=== PATIENT | male | born 1955 | race Caucasian/White ===

== ENCOUNTER 2024-11-01 11:32 | Day surgery (SDC) | payer MEDICARE, OTHER, SELFPAY ==
[2024-10-21 12:41] VITALS: BMI 23.6
[2024-10-21 14:20] VITALS: BMI 23.6
[2024-11-01] VITALS (12 sets, daily range): BP systolic 83–129; BP diastolic 44–79; PULSE 51–66; RESP 12–18; TEMP 36.1–37.2; O2SAT 93–99; BMI 23.6
--- NOTE | 2024-11-01 | DI.RAD.S_ITS ---
PROCEDURE: XR HIP W PEL IF DONE RT 2V INDICATIONS: RIGHT TOTAL HIP TECHNIQUE: AP pelvis and lateral view of the hip acquired. COMPARISON: [facility], [place]ON, XR HIP W PEL IF DONE RT 2V, 11/01/2024, 14:12. FINDINGS: Bones: Patient is status post right hip arthroplasty, with hardware components in expected positions. The hip joint appears congruent. The visualized bony structures appear intact. Soft tissues: Overlying postoperative changes are noted. No suspicious soft tissue densities. IMPRESSION: Expected post-operative appearance of a hip arthroplasty. Approved by: Gustavo Davis M.D. on 11/02/2024 at 17:57
--- NOTE | 2024-11-01 06:00 | DI.RAD.S_ITS ---
PROCEDURE: XR HIP W PEL IF DONE RT 2V INDICATIONS: veronika TECHNIQUE: 2 view(s) of the hip acquired. COMPARISON: [facility], CR, XR HIP W PEL IF DONE RT 2V, 11/01/2024, 16:30. FINDINGS: Bones: Intraoperative right hip arthroplasty changes. The hardware components are in expected positions. The hip joint appears congruent. The visualized bony structures appear intact. Soft tissues: Overlying postoperative changes are noted. No suspicious soft tissue densities. IMPRESSION: Expected intraoperative appearance of a hip arthroplasty. Dictated by: Aysha Priest MD, PhD on 11/02/2024 at 12:02 Approved by: Aysha Priest MD, PhD on 11/02/2024 at 12:03
[2024-11-01] MEDS: ACETAMINOPHEN 325 MG TABLET 975 MG PO (12:13)
[2024-11-01] MEDS: LACTATED RINGERS 1,000 ML 42 ML IV ×2 (12:13→15:06)
[2024-11-01] MEDS: MELOXICAM 7.5 MG TABLET 15 MG PO (12:14)
--- NOTE | 2024-11-01 13:21 | PM.PREOP ---
Pre-operative Note Interval Note History & Physical reviewed/Exam performed by Physician: Yes Changes to H&P: Yes H&P completed within 30 days and has changed as indicated here:: Patient with recent viral URI symptoms. We are going to get a PCR panel preoperatively
[2024-11-01 13:56] LABS: COVID-19 CEPHEID 4-PLEX PCR Negative (Negative); Influenza A - CEPHEID Flu A NEGATIVE (NEGATIVE); Influenza B - CEPHEID Flu B NEGATIVE (NEGATIVE); Respiratory Syncytial Virus Negative (Negative)
[2024-11-01] MEDS: CEFAZOLIN 2 GM/100 ML PREMIX 100 ML IV ×2 (14:35→22:23)
[2024-11-01] MEDS: TRANEXAMIC ACID 1,000 MG VIAL 2000 MG INJ ×2 (14:36→15:57)
--- NOTE | 2024-11-01 14:58 | SUR.OPER ---
Supine on padded [place] table with bilateral legs secured in padded positioning boots and suspended in positioning spars, operative leg in traction per surgeon. Head on one pillow. Bilateral arms secured on padded armboard <90 degrees abduction. Padded perineal post in place per surgeon.
[2024-11-01] MEDS: ROPIVACAINE/EPI/CLONIDINE/KET 50 ML SYRINGE INJ (15:08)
--- NOTE | 2024-11-01 16:19 | P.OP_ITS ---
Operative Date/Time/Diagnoses Date of procedure: 11/01/24 Pre-op diagnosis: Right hip osteoarthritis Post-op diagnosis: same Procedure & Clinicians Procedure: Right total hip arthroplasty Same procedure as scheduled: Yes Surgeon: Gustavo Verde [employer] Contact Printer: Cheryl Adams Anesthesia Type: Spinal, Sedation and Local Operative Notes Estimated Blood Loss (mL): 300 Procedure in detail: Right Uncemented Direct Anterior Depuy Total Hip Arthroplasty: Implants: * [place] Gription size 62 cup? * Actis femoral stem size 8 high offset? * 36 mm +5 ceramic femoral head? Procedure Summary: This 69-year-old male patient is relatively slender and had a small soft tissue envelope around his hip. I was able to access the femur for broaching without accessory releases of the conjoined tendon. During initial trialing he had good stability but appeared to be slightly short so with final implants upsized the head by [address] a definitive +5 head. Bone quality was high. Procedure in Detail: This patient was seen preoperatively and evaluated for hip pain which was refractory to numerous nonoperative treatment modalities. Their hip pain correlated with radiographic changes demonstrating significant degeneration in the hip joint. The risks and benefits of continued nonoperative management versus operative management were discussed at length and all of the patient?s questions were answered. Additional educational materials providing further details beyond our discussion in clinic were provided via a publicly available patient education video which included the incidence of medical complications associated with total hip arthroplasty, reasons for revision following total hip arthroplasty, and patient satisfaction rates following total hip arthroplasty. That video can be accessed at [email or web address] . With this understanding of the risks inherent to the procedure, the patient elected to move forward with operative management. Following preoperative optimization, the patient was scheduled for surgery. The patient was met in the preoperative holding area the day of the procedure and all questions were answered. The patient?s nares were swabbed with betadine in order to decolonize them from MRSA. Informed consent was signed and the right limb was marked with indelible ink.? The patient was brought back to the operating room where anesthesia was induced. The patient was transferred to the [place] table and all bony prominences were padded. The operative site was prepped and draped in the usual sterile fashion. Prior to incision, tranexamic acid and cefazolin were administered. Operative templating images were displayed demonstrating the anticipated implant sizes and correct operative extremity. A timeout procedure was performed verifying the patient?s identity, medical comorbidities, allergies, relevant medications, anesthesia type and the surgical plan. All present were in agreement. The assistance of a physician glass ribbon machine operator assistant was required for positioning, room setup, soft tissue retraction and wound closure. Without this assistance, the procedure would have been significantly more challenging and time consuming.?? A direct anterior approach to the hip was utilized. This was performed with a longitudinal incision through a Heuter interval. The incision was planned 2 cm distal and 2 cm lateral to the ASIS extending towards the lateral patella, in line with the muscle body of the TFL. Following incision, the subcutaneous tissue was dissected while taking care to avoid injury to the lateral femoral cutaneous nerve. The fascia overlying the TFL was identified by dissecting off the overlying fat and identifying perforating vessels to the TFL. The TFL fascia was incised and dissected away from the medial border of the TFL. A cobra retractor was placed over the superior femoral neck between the abductors and the hip capsule and used to reflect the TFL laterally. A [place] self-retainer was then placed in the distal aspect of the wound between the TFL and the rectus femoris. This was tensioned to open up the direct anterior interval and the lateral circumflex vessels were identified and coagulated using electrocautery. The floor of the TFL fascia was incised, exposing the pericapsular fat overlying the hip capsule. A second cobra retractor was placed on the inferior femoral neck. A double-bent soft tissue retractor was placed on the anterior wall of the acetabulum and used to tension the reflected head of rectus femoris, which was then released in order to limit soft tissue tension. A capsulotomy was made in the midline of the anterior hip capsule in line with the femoral neck ending at the vastus tubercle. The double-bent retractor was removed in order to limit the amount of time that a soft tissue retractor remained on the anterior wall and protect the femoral nerve. Tag stitches were placed in the superior and inferior leaflets of the hip capsule. An David soft tissue retractor was introduced over the tag stitches and tensioned in the interval between the rectus femoris and the TFL in order to retract and protect those muscles. The cobra retractors were replaced intracapsularly, with one over the superior neck in the pocket created by the base of the greater trochanter and the other on the femoral head. The capsulotomy was extended laterally to the base of the greater trochanter and medially to the lesser trochanter. This required externally rotating the hip. Once the lesser trochanter had been identified, a neck cut was planned according to measurements from preoperative templating. A ruler was cut at the length measured between the superior aspect of the lesser trochanter and the collar of the prosthesis. This line was extended towards the inferior aspect of the lateral cobra retractor to plan a cut which would leave minimal residual femoral neck laterally. The neck was cut at 60 degrees of external rotation along that line. A second cut was performed to remove a large napkin ring and facilitate head extraction. The napkin ring cut and femoral head were removed.?? A broad anterior wall retractor was placed between the labrum and the anterior capsule so that the anterior capsule would prevent capturing and pinching the femoral nerve anteriorly. An additional retractor was placed on the posterior wall. External rotation and traction were applied through the [place] table so that the cut surface of the femoral neck would not restrict access to the acetabulum. The labrum was excised sharply and the pulvinar was excised with electrocautery to limit bleeding from branches of the obturator artery. Acetabular reamers were selected based on preoperative templating and measurements of the excised femoral head. These were introduced into the acetabulum. Fluoroscopy was utilized to replicate a standing AP pelvis radiograph by centering over the pelvis, rotating until there was appropriate symmetry between the obturator foramen, and introducing caudal tilt to match the position of the pubic symphysis relative to the sacrococcygeal junction according to the patient?s anatomy. Fluoroscopy was utilized to ensure appropriate reaming depth. Once satisfied with the reaming depth corresponding to the preoperative template and the pinch fit between the columns, an appropriate sized acetabular cup was selected which would provide 1 mm of press-fit. This cup was introduced and manipulated until appropriate abduction and anteversion angles were obtained with careful attention to appropriate abduction and anteversion angles as evaluated by the position of the cup relative to the anterior and posterior beasley of the acetabulum and the AP fluoroscopy which recreated the patient?s standing radiograph. The cup was impacted into place. Peripheral osteophytes were removed. The acetabular liner was then placed with care to ensure locking of the locking mechanism.? Attention was then turned to the femur. All retractors were removed, traction was released, a retractor was placed in the interval between the hip capsule and the gluteus minimus, and the hip was externally rotated to 90 degrees. Traction was applied through the [place] table to tension the lateral capsule and this was released using electrocautery. Traction was released and a [place] hook was placed posteriorly around the proximal femur at the level of the vastus ridge. The table height was lowered in order to restrict the tension on the anterior structures during hip hyperextension to limit the risk of femoral nerve palsy. With traction off and the hip at 90 degrees of external rotation, the hip was hyperextended and adducted while manually elevating the femur away from the acetabulum with the [place] hook to ensure it would not be caught behind the greater trochanter. An asymmetric retractor was placed over the calcar and a broad double-pronged retractor was placed over the greater trochanter. The tag stitch capturing the lateral leaflet of the capsule was moved to the medial side, leaving the conjoined and piriformis tendons isolated in the face of the greater trochanter. The hip was externally rotated and elevated. A release of the conjoined tendon was not necessary in order to obtain adequate exposure for broaching. The canal was opened with an opening broach and a rasp was used to remove cancellous bone. A rongeur was used to remove the residual lateral bone at the base of the greater trochanter to avoid placing the stem in varus. The femur was then broached to the appropriate sized stem yielding good rotational fit and fill of the canal as well as appropriate version of the stem trial. Neck and head trials were placed, all retractors were removed and the hip was returned to neutral abduction and extension. I then reduced the hip. Initial trialing was performed with a size 8 broach, a high offset neck and a +1.5 head. I initially manually externally rotated the hip and found no instabi lity. I then locked the hip in 45 degrees of external rotation and dropped it to the floor with traction off which demonstrated no instability. An AP pelvis fluoroscopic image matching the preoperative standing radiograph with both lesser trochanters visible and both hips in 40 degrees of external rotation demonstrated that the operative site was slightly short relative to the nonoperative side. AP and lateral hip fluoroscopic images were obtained to evaluate the broach size which demonstrated good canal fill. The hip was dislocated and I returned to the broaching position. Based on my evaluation during initial trialing I planned to place definitive implants but upsize by 1 on the head side as stability was good with the +1.5 head although it did appear to be short radiographically when using a long metal bar across the trans ischial line to control for fluoroscopic distortion. The definitive stem was placed and the trunnion was cleaned and dried. I placed a ceramic head onto the trunnion and impacted it into place on the Gillis taper.?? All retractors were removed and the hip was reduced. A dilute mixture of betadine and peroxide was used to bathe the soft tissues during final fl uoroscopic assessment. Appropriate component positioning was confirmed on an AP pelvis radiograph with the operative and nonoperative legs in 40 degrees of external rotation, evaluating leg length and offset. Appropriate stem fill was evaluated on AP and lateral hip radiographs. No fractures were identified on these radiographs. There was no hip instability with maximum (115?) external rotation as well as a 45 degree drop test. The hip was copiously irrigated with pulse lavage. The capsule was closed with absorbable interrupted suture. The TFL fascia was closed with barbed suture while carefully protecting the lateral femoral cutaneous nerve from entrapment. A mixture of Ropivacaine, Epinephrine, Clonidine and Toradol was infiltrated throughout the soft tissues. The skin was closed with 2-0 and 3-0 sutures. Surgical glue was applied and a soft dressing was placed.??The sponge, instrument and needle counts were reported as being correct at the end of the case.??No obvious complications occurred. The patient was transferred from the [facility] back to a stretcher. The patient emerged from anesthesia without difficulty and was taken to the PACU in a stable condition.? Plan for aftercare: * No hip precautions * Weightbearing as tolerated * Aspirin 81 twice per day for DVT prophylaxis * Anticipate discharge home tomorrow * Change into normal clothes upon arrival on the hospital floor * Mobilize in the halls as much as is logistically possible. If physical therapy is unavailable for mobilization, then patient should mobilize with nursing staff * Multimodal pain regimen with no IV opioids ordered * Apply ice machine to operative hip. Ensure that sufficient ice is in the chamber for the pad to remain cold * Follow up at [facility] in 2 weeks * Detailed postoperative instructions available at [email or web address]
[2024-11-01] MEDS: OXYCODONE IR 5 MG TABLET PO ×2 (16:53→22:25)
[2024-11-01] MEDS: IBUPROFEN 600 MG TABLET PO ×2 (17:42→22:23)
[2024-11-01] MEDS: LACTATED RINGERS 1,000 ML 100 ML IV (17:43)
[2024-11-01] MEDS: TAMSULOSIN 0.4 MG CAPSULE PO (17:55)
[2024-11-01] MEDS: DOCUSATE 100 MG CAPSULE PO (20:40)
[2024-11-01] MEDS: hydrOXYzine HCL 25 MG TABLET 50 MG PO (20:40)
[2024-11-01] MEDS: ASPIRIN EC 81 MG TABLET PO (20:40)
[2024-11-01] MEDS: ACETAMINOPHEN 325 MG TABLET 650 MG PO (22:23)
[2024-11-01] MEDS: clonazePAM 0.5 MG TABLET 3 MG PO (23:27)
[2024-11-02] MEDS: OXYCODONE IR 5 MG TABLET PO (04:03)
[2024-11-02] MEDS: IBUPROFEN 600 MG TABLET PO ×2 (05:17→11:36)
[2024-11-02] MEDS: CEFAZOLIN 2 GM/100 ML PREMIX 100 ML IV (05:17)
[2024-11-02] MEDS: ACETAMINOPHEN 325 MG TABLET 650 MG PO ×2 (05:17→11:36)
[2024-11-02 06:21] LABS: Hematocrit 36.5 % (41-53); Hemoglobin 12.5 g/dL (13.5-17.5)
--- NOTE | 2024-11-02 07:57 | PM.DS.1 ---
History of Present Illness History of Present Illness Chief complaint: Right TRINI anterior *OPB* Narrative: Hector is a very pleasant 69 year old male who is POD#1 s/p right anterior total hip arthroplasty by Dr. Verde. This morning patient is sitting up in bed comfortably, he reports he would like to discharge to home today if possible. He has not been able to get out of bed or work with physical therapy yet however. He has been urinating well w/o issue. Pain is moderate, well-controlled with oral Oxycodone. He has his postop pain medication at home already. He denies history of blood clots and will take ASA b.i.d. for DVT prophylaxis postoperatively. He does live alone but his girlfriend will be staying with him in the immediate postop period to aid in his recovery. He has a walker at home already, has postop physical therapy appointments scheduled already at [facility] in [facility]. Denies fever, chills, chest pain, SOB, nausea, vomiting. Operative Date/Time/Diagnoses Date of procedure: 11/01/24 Pre-op diagnosis: Right hip osteoarthritis Post-op diagnosis: same Procedure & Clinicians Procedure: Right total hip arthroplasty Same procedure as scheduled: Yes Surgeon: Gustavo Verde [employer] Architect: Cheryl Adams Anesthesia Type: Spinal, Sedation and Local Operative Notes Estimated Blood Loss (mL): 300 Procedure in detail: Right Uncemented Direct Anterior Depuy Total Hip Arthroplasty: Implants: [place] Gription size 62 cup? Actis femoral stem size 8 high offset? 36 mm +5 ceramic femoral head? Discharge Providers Provider Discharge Date: 11/02/24 Primary care physician: Brandan Altman MD Consults: 10/21/24 14:20 Consult to Anesthesiology Routine Comment: Consulting Provider: Anesthesiologist Reason for consultation: Surgeon request for cardiac. 11/01/24 06:00 Consult to Anesthesiology Routine Comment: Consulting Provider: Anesthesiologist Reason for consultation: Regional block for post operative pain control 11/01/24 17:01 Consult to Discharge Planning Routine Comment: Consult to Physical Therapy Evaluate & Treat Comment: Physician Instructions: post op TRINI protocol Discharge provider: Bianca Meeks PA-C Summary Hospital Course Discharge Diagnosis: Stable status post right total hip arthroplasty Hospital Course: uncomplicated hospital course Exam Vital Signs (past 8 hours): Oxygen Delivery Method Room Air Oxygen Flow Rate 0 Narrative Exam Narrative: Patient lying comfortably in bed during our interview today. No acute distress. AOx3. Grossly normal alignment of the RLE. 5/5 strength with DF, PF, EHL bilaterally. Gross sensation intact throughout bilateral lower extremities. Calves soft and non-tender bilaterally. SCDs are on and functioning. Brisk capillary refill, pulses intact. Post-surgical Aquacel dressing clean, dry and intact over the right hip w/o drainage. 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 2) Continue multimodal pain management with ice to the hip for additional pain control. Has postop pain medication at home already. 3) ASA b.i.d. for DVT prophylaxis. 4) Start outpatient physical therapy to work on range of motion and mobility. WBAT, no hip precuations. 5) Keep dressing intact, clean, dry until 2 week postop appointment. No soaking the incision site in pools or tubs. No topical ointments or creams to the incision site. 6) Follow up at [facility] orthopedics in 2 weeks for a postop appointment and wound check. All patient's questions were answered, they demonstrates understanding and are in agreement with the plan. Call our office if any questions or concerns arise. Discharge Plan Discharge Plan Patient Disposition: Home Discharge orders & Medications Discharge Orders: Discharge (Order); Ordered 11/02/24 Ordered By: Bianca Meeks Prescriptions: New acetaminophen 325 mg Tablet 650 mg PO Q6H Qty: 90 0RF aspirin 81 mg Tablet,Delayed Release (Dr/Ec) 81 mg PO BID Qty: 90 0RF docusate sodium 100 mg Capsule 100 mg PO BID Qty: 30 0RF ibuprofen 600 mg Tablet 600 mg PO Q6H Qty: 90 0RF ondansetron 4 mg Tablet,Disintegrating 4 mg PO Q4HR PRN (Reason: Nausea) Qty: 10 0RF oxycodone 5 mg Tablet 5 mg PO Q4-6H PRN (Reason: Pain, Severe (7-10)) Qty: 30 0RF Continued cetirizine [Zyrtec] 10 mg Tablet 10 mg PO PRN PRN (Reason: Allergies.) clonazepam 1 mg tablet 3 mg PO BEDTIME PRN (Reason: Insomnia. ) tamsulosin 0.4 mg capsule 0.4 mg PO DAILY fluticasone propionate 50 mcg/actuation spray,suspension 1 spray intranasal BID tadalafil [Cialis] 10 mg Tablet 10 mg PO DAILY Rx Instructions: administer approximately 30min before sexual activity; do not use more than 1 dose per 24hrs hydroxyzine HCl 25 mg Tablet 50 mg PO BEDTIME Discontinued acetaminophen [Tylenol Extra Strength] 500 mg Tablet 500 mg PO BEDTIME PRN (Reason: Hip pain.) ibuprofen 200 mg Tablet 400 mg PO BEDTIME PRN (Reason: Hip pain.) Follow up/Referrals: Brandan Altman MD [Primary Care Provider] - Gustavo Verde MD [Physician] - 11/12/24 4:00 pm (Follow up w/ Bianca Meeks PA-C, at [facility] in [place].) Diet/Activity/Treatments Diet: Diet as Tolerated Activity: Weightbearing as tolerated. Cold/Heat Therapy: Ice to hip as needed for pain. Skin/Wound/Dressing Care Report to your healthcare provider any signs of infection, such as:: chills, fever, night sweats, unusual drainage and unusual redness Dressing: May shower. Leave Aquacel dressing in place until follow up in office. No bathing or otherwise soaking incision. Call the office if the dressing becomes saturated inside. Visit Report/Discharge Packet Instructions: DI for Hip Replacement Stand Alone Forms: Patient Portal/API, Surgery Discharge Discharge Data Primary Care Provider: Brandan Altman Attending Provider: Gustavo Verde Quality VTE Deep Vein Thrombosis/Pulmonary Embolism Present on Admission: No
[2024-11-02 08:00] VITALS: BP 111/66; PULSE 59; RESP 12; TEMP 36.8; O2SAT 98
--- NOTE | 2024-11-02 08:40 | CM.DANOTE ---
Initial DCP Assessment Visit Note Reviewed EMR and team rounds for status updates. Met with pt at bedside to introduce self and role, pt was found to be alert/oriented, eating his breakfast, stating that his pain is well managed at this time. He lives independently at baseline in his own condo with his life partner. She will plan to transport him home later this morning after he works with PT. He denies any CM d/c assistance or resource needs at this time. Payor: Medicare Attending: Dr. Verde Pt is a 69 year-old M post-op day 1 from a R-hip total arthoplasty surgery. He had a previous L-hip arthroplasty surgery around without difficulty postoperatively. Pt does not use an AD at baseline, but has a walker and all other DME at home necessary for recovery. He reports that he also has his post-op Ortho appt and OP PT scheduled. No further d/c needs are identified at this time. Discharge Planning/Care Management Advanced directive, confirm from FAMILY Start: 11/01/24 17:16 Freq: Q24H Status: Active Protocol: Document 11/01/24 17:49 SB (Rec: 11/01/24 17:49 SB [id number]) Advance Directive, confirm on record Time 17:49 Person contacted patient Copy received Yes Advanced directive available on record Yes CM Discharge Assessment Start: 11/02/24 08:38 Freq: Status: Active Protocol: Document 11/02/24 08:39 DPL (Rec: 11/02/24 08:40 DPL [id number]) Discharge Planning Assessment Assigned Dip Stand Loader FRANCHESKA Niño Advance Directives? Yes Advance Directives on File No History Provided By Patient,Medical Record Has Patient been admitted in last 30 No days? Prior Living Arrangements Apartment/Condo Household Members significant other,none Type of transporation used prior to Drives own vehicle admit Independent with ADL's Yes Is patient alert and oriented? Yes Comment N/A Caregiver for Another No Comment N/A DME Already Rented / Owned FWW / Walker Patient/Family Preference OP PT Therapy Barriers to Discharge No Discharge Plan Home Referrals Initiated None needed Whiteboard Updated in Patient Room with Yes name and ext. # of Dip Stand Loader Review Status In Process Please Provide Date Initial DC 11/02/24 Assessment Was Performed Pre-Anesthesia Assessment Start: 10/21/24 12:41 Freq: Status: Active Protocol: Document 10/21/24 12:41 LB (Rec: 10/21/24 13:41 LB [id number]) Pre-Anesthesia Assessment PAC Comment 10/21/24 Phone assessment. Patient Information Reviewed Via Phone Assessment Assessment Completed With Patient Comment Labs/EKG requested from . Primary Care Provider Brandan Altman Medical Clearance Received Yes Seen Specialist in Last 12 Months Yes Specialist Seen Emergency Room Technician,Orthopedist Primary Language Lebanese Preferred Language Lebanese Overhead Garage Door Hanger Required No Height 177.8 cm Weight 74.843 kg Body Mass Index (BMI) 23.6 Hearing Ability Normal Visual Assist Contacts,Glasses Dentition Type Teeth, Natural Present,Dental Implants Barriers to Learning None Other Aids No Hx Anesthesia Reactions No Hx Family Anesthesia Reaction No Hx Malignant Hyperthermia No Hx Blood Transfusions No Library Science Professor No alcohol intake current alcohol intake frequency a few times a week Smoking Status Never smoker Substance Use Type [#R] marijuana Pain Present Pain Reported Comment Right hip. Musculoskeletal Symptoms Joint Pain History of Falling (Recent or History of Yes ) Comment 2010 fall at work, 2015 fall on ice, ~2018 fall in bathroom . Patient is completely paralyzed or No completely immobile Mental Status Oriented to own ability Comment Will bring walker. Is patient on oxygen? No Does patient have MEZA/SOB No Hx Sleep Apnea No Currently Taking a Beta Paula No Can You Climb a Flight of Stairs Without Yes SOB Hx Chest Pain No Hx SOB No Hx Syncope or Dizziness No Anti-Coagulant Therapy No Has a Emergency Room Technician Yes Emergency Room Technician name Dr Chadwick SAWYER Cardiac Testing Yes: Echo 06/24. Hx Pacemaker/ICD Yes Cardiac Clearance Received Yes Dysphagia No Gastrointestinal Symptoms Reflux Comment Occasional heartburn. Chronic UTI No Urinary Catheter Present No Hx Urinary Self Catheterization No Diabetes No Hx Drug Resistant Organism No Presence of External or Internal Medical Yes: Pacemaker. Devices Have you had any close contact with No someone diagnosed with COVID-19? Are you experiencing any of these No symptoms symptoms? Comment Denies covid last 8 weeks. Marital Status Lives With none Current Living Arrangements Apartment/Condo Number of Stairs To Enter/Railing? No stairs. Support System Significant Other Does the Patient Have Assistance After Yes Surgery Patient Discharge Plan Description Return Home Feels Safe in Current Environment Yes Do you have a plan to hurt yourself or No Plan others? Advance Directives? Yes Advance Directives on File No Requested Patient Bring Advanced Yes Directives DOS PAC Instructions Assistance for 24 hours post- op,Durable medical equipment, Medications to take/avoid, Nasal antibiotic,No ETOH/ petroleum product on skin DOS, NPO,Post-op transportation,Pre -surgical wash,Sensory aids, Sturdy shoes/comfortable clothes,Do not bring valuables and remove jewelry Document 10/21/24 14:20 LB (Rec: 10/21/24 14:20 LB [id number]) Pre-Anesthesia Assessment PAC Comment 10/21/24 Phone assessment. Patient Information Reviewed Via Phone Assessment Assessment Completed With Patient Comment Labs/EKG requested from . Primary Care Provider Brandan Altman Medical Clearance Received Yes Seen Specialist in Last 12 Months Yes Specialist Seen Emergency Room Technician,Orthopedist Primary Language Lebanese Preferred Language Lebanese Overhead Garage Door Hanger Required No Height 177.8 cm Weight 74.843 kg Body Mass Index (BMI) 23.6 Hearing Ability Normal Visual Assist Contacts,Glasses Dentition Type Teeth, Natural Present,Dental Implants Barriers to Learning None Other Aids No Hx Anesthesia Reactions No Hx Family Anesthesia Reaction No Hx Malignant Hyperthermia No Hx Blood Transfusions No Anesthesia Review Requested Yes: Surgeon request for cardiac. Library Science Professor No alcohol intake current alcohol intake frequency a few times a week Smoking Status Never smoker Substance Use Type [#R] marijuana Pain Present Pain Reported Comment Right hip. Musculoskeletal Symptoms Joint Pain History of Falling (Recent or History of Yes ) Comment 2010 fall at work, 2016 fall on ice, ~2019 fall in bathroom . Patient is completely paralyzed or No completely immobile Mental Status Oriented to own ability Comment Will bring walker. Is patient on oxygen? No Does patient have MEZA/SOB No Hx Sleep Apnea No Currently Taking a Beta Paula No Can You Climb a Flight of Stairs Without Yes SOB Hx Chest Pain No Hx SOB No Hx Syncope or Dizziness No Anti-Coagulant Therapy No Has a Emergency Room Technician Yes Emergency Room Technician name Dr Genao - [facility] Cardiac Testing Yes: Echo 06/24. Hx Pacemaker/ICD Yes Cardiac Clearance Received Yes Dysphagia No Gastrointestinal Symptoms Reflux Comment Occasional heartburn. Chronic UTI No Urinary Catheter Present No Hx Urinary Self Catheterization No Diabetes No Hx Drug Resistant Organism No Presence of External or Internal Medical Yes: Pacemaker. Devices Have you had any close contact with No someone diagnosed with COVID-19? Are you experiencing any of these No symptoms symptoms? Comment Denies covid last 8 weeks. Marital Status Lives With none Current Living Arrangements Apartment/Condo Number of Stairs To Enter/Railing? No stairs. Support System Significant Other Does the Patient Have Assistance After Yes Surgery Patient Discharge Plan Description Return Home Feels Safe in Current Environment Yes Do you have a plan to hurt yourself or No Plan others? Advance Directives? Yes Advance Directives on File No Requested Patient Bring Advanced Yes Directives DOS PAC Instructions Assistance for 24 hours post- op,Durable medical equipment, Medications to take/avoid, Nasal antibiotic,No ETOH/ petroleum product on skin DOS, NPO,Post-op transportation,Pre -surgical wash,Sensory aids, Sturdy shoes/comfortable clothes,Do not bring valuables and remove jewelry
--- NOTE | 2024-11-02 09:30 | PT.IIE ---
Current Diagnoses Unilateral primary osteoarthritis, right hip (11/01/24) Surgery Performed Operation Date: 11/01/24 13:45 Actual Procedures p Total Hip Arthroplasty/Anterior Approach(Right) - Gustavo Verde MD Surgical History (Last Updated 10/21/24 @ 13:50 by Zora Cabrera, RN) H/O arthroscopy of hip Hx of knee surgery Hx of repair of right rotator cuff (2010) Hx of tonsillectomy Medical History (Last Updated 10/21/24 @ 13:50 by Zora Cabrera, RN) Cardiac arrest (06/2024) Neck fracture Pacemaker (06/17/24) PTSD (post-traumatic stress disorder) Physical Therapy Inpatient Evaluation/Re-Eval M1 PT/OT-IP Prior Functional Status Start: 11/02/24 13:12 Freq: NEEDED Status: Active Protocol: Document 11/02/24 09:30 AB (Rec: 11/02/24 13:28 AB [id number]) Medical Review Prior Functional Status Medical History Reviewed Yes Communication able to make needs known Mobility and Gait pt stated that he was independent with all mobilities and ambulation without AD Social History Household Members none Living Arrangements Apartment/Condo Number of Floors (Floors) One Floor Number of Stairs To Enter/Railing? no steps to enter Home Environment Standard Height Toilet,Walk in Shower,Built-In Shower Seat Home Equipment Front Wheel Walker,Grab Bars In Shower Additional Social History Comment pt stated that his partner renee lives across the street and can assist him if needed pt has an adjustable bed M2 PT-IP Current Condition Start: 11/02/24 13:12 Freq: NEEDED Status: Active Protocol: Document 11/02/24 09:30 AB (Rec: 11/02/24 13:28 AB [id number]) Physical Therapy Current Condition Current Condition Evaluation Date 11/02/24 Treatment Diagnosis s/p R TRINI anterior; difficulty in walking Onset Date 11/01/24 M3 PT-IP Subjective Start: 11/02/24 13:12 Freq: NEEDED Status: Active Protocol: Document 11/02/24 09:30 AB (Rec: 11/02/24 13:28 AB [id number]) Subjective Physical Therapy Visit Type Type Initial Evaluation Visit Start Time 09:30 Visit Stop Time 09:55 Number of METAL MINE INSPECTOR Visits 0 Physical Therapy Visit Comments Patient Comments agreeable to do PT Therapy Pain Assessment Pain When Pain Assessed At Rest Pain Present Pain Present Pain Reported Location Right Hip Intensity 3 Scale Used Numeric (0 - 10) Pain Management Techniques Apply Cold,Distraction, Modification of Treatment,Re- positioning,Timing of Activity with Medications M4 PT-IP Mobility and Gait Start: 11/02/24 13:12 Freq: NEEDED Status: Active Protocol: Document 11/02/24 09:30 AB (Rec: 11/02/24 13:28 AB [id number]) PT-Bed Mobility Assessment Supine to Sit Supine to Sit Standby Assistance Sit to Supine Sit to Supine Standby Assistance PT-Transfer Assessment Sit to and From Stand Sit to and from Stand Standby Assistance,1 Person Assistance,Use of Upper Extremities Equipment Transfer Assistive Device Gait Belt,Front Wheeled Walker Orthotic/Prosthetic Devices or Brace: No Transfers Transfer Destination Bed,Chair Transfer Technique ambulated Transfer Ability Level of Assist Standby Assistance Comments Mobility Comments pt sitting on the chair and agreeable to do PT. obtained PLOF and home set up. post-op folder provided and reviewed contents. pt completed sit to stand SBA and ambulated in room using FWW SBA. pt sat on EOB and completed sit<>supine SBA. pt agreed to walk more. completed sit to stand from EOB sBA and ambulated ~ 75 [address] in [address] hallway using FWW SBA. pt walk back to chair. positioned pt on the chair. call light and table placed within reach. ice pack/ice machine on pt. Gait Assessment Gait Gait Assistance Required: Standby Assistance Distance (Feet) 75 Able to Maintain Weight Bearing Status Yes During Gait Assistive Devices Assistive Device Gait Belt,Front Wheeled Walker Orthotic/Prosthetic Devices or Brace: No Gait Deviations General Gait Pattern Antalgic,Step-to Gait Factors Limiting Gait Function Factors Limiting Gait Function Decreased Activity Tolerance, Decreased Strength,Limited Range of Motion,Pain,Poor Balance,Poor Safety Awareness PT-Balance Assessment Sitting Balance and Reactions Static Sitting Balance Ability Normal Dynamic Sitting Balance Ability Good Standing Balance and Reactions Static Standing Balance Ability Good Dynamic Standing Balance Ability Fair Device Used FWW M5 PT-IP Objective Assessments Start: 11/02/24 13:12 Freq: NEEDED Status: Active Protocol: Document 11/02/24 09:30 AB (Rec: 11/02/24 13:28 AB [id number]) Orientation Orientation/Cognition Level of Alertness Alert Orientation Name,Place,Situation Safety Awareness Understands Safety Issues, Decreased Safety Awareness Memory Description No Deficits Noted Gross Range of Motion Lower Extremity ROM Assessment Within Functional Limits Strength Lower Extremity Strength Assessment Right Impaired Hip 3-/5 Knee 4/5 Coordination Assessment Gross Coordination Gross Coordination WNL Sensation Assessment Sensation Gross Sensation WNL Muscle Tone Muscle Tone WNL Yes M6 PT-IP Treatment Start: 11/02/24 13:12 Freq: NEEDED Status: Active Protocol: Document 11/02/24 09:30 AB (Rec: 11/02/24 13:28 [id number]) Physical Therapy Treatment Education Education Provided Precautions,Weight Bearing Status,Post-Op Packet,Safety M7 PT-IP Assessment and Plan Start: 11/02/24 13:12 Freq: NEEDED Status: Active Protocol: Document 11/02/24 09:30 AB (Rec: 11/02/24 13:28 [id number]) PT Summary Assessment and Plan Potential Rehabilitation Potential Good Status of Condition at Evaluation Stable Summary Impairments Pain,ROM,Strength,Balance, Coordination,Sensation,Tone, Cognition,Bed Mobility, Transfers,Gait,Activity Tolerance Assessment Summary pt is a 69 y/o M s/p R TRINI anterior approach POD 1. no hip precautions per Dr. Verde. pt is WBAT on RLE. pt requiring SBA with mobility using fWW and plans to go home with his partner to assist him if needed. pt has outpt PT setup. Goals Bed Mobility Goal Independent Transfer Goal Independent,Front Wheeled Walker Gait Goal Independent,Front Wheel Walker Gait Distance 300 Days to Meet Goals 3 Frequency of Treatment Frequency Of Treatment Twice a Day Treatment Plan Physical Therapy Treatment Plan Bed Mobility Training,Transfer Training,Gait Training, Therapeutic Exercise,Balance Retraining,Post Op Education, Discharge Planning,Hot or Cold Pack,Neuromuscular Re-ed, Coordination Retraining,Manual Therapy Weight Bearing Status Weight Bearing Status Weight Bear as Tolerated Allowed Weight Bearing Amount (enter % RLE WBAT or #) (%) Recommendations To Nursing Amount of Assist Needed Standby Assistance Discharge Recommendations PT Discharge Recommendations Home with Assistance, Outpatient PT Transportation Needs at Discharge Private Vehicle
[2024-11-02] MEDS: FLUTICASONE 120 SPRAY/16 GM SPRAY.SUSP NASAL (09:34)
[2024-11-02] MEDS: ASPIRIN EC 81 MG TABLET PO (09:34)
[2024-11-02] MEDS: DOCUSATE 100 MG CAPSULE PO (09:34)
--- NOTE | 2024-11-02 11:57 | PC.NURSE ---
Patient teaching done at bedside with son present. All questions and concerns addressed. Pt aware of f/u appt w/ surgery. States I have already picked up all my prescribed medications from pharm prior to surgery. Pt will be escorted home w/ sun and taken down to private vehicle. All belongings have been collected, IV removed. Patient will call w/ call dawson when finished with lunch to d/c. VSS, A&O x4, call dawson with in reach.
== END 2024-11-02 12:20 | disposition home or self-care (01) ==
LOC: OR 11:34 → AC 11:36
PROVIDERS: Nurse Anesthetist, Certified Registered; PCP Internal Medicine; Referring Provider Orthopaedic Surgery Adult Reconstructive Orthopaedic Surgery; Visit Provider Orthopaedic Surgery Adult Reconstructive Orthopaedic Surgery
PROC: (CPT 27130; principal; 2024-11-01 13:45)
DX: M16.11 Unilateral primary osteoarthritis, right hip (principal); M25.751 Osteophyte, right hip; Z95.0 Presence of cardiac pacemaker
CPT/HCPCS: 27130; 0241U; 36415; 73502; 76000; 85014; 85018; 97161; 97530; C1776; A9270; J0690; J1100; J1885; J2704; J3010